=== PATIENT | male | born 1990 | race Caucasian/White ===

== ENCOUNTER 2024-09-30 10:07 | Emergency (ER) | payer OTHER, SELFPAY ==
[2024-09-30 10:08] VITALS: BP 109/78; PULSE 63; RESP 28; TEMP 35.9; O2SAT 100; BMI 22.0
--- NOTE | 2024-09-30 10:20 | ED.VIS.GI ---
HPI HPI - GI History of Present Illness Chief Complaint: Abd Pain Informant: patient Abdominal Pain/Flank Pain Onset: Today and Hours Context: Gradual Onset Timing: Continuous Quality: Aching and Cramping Location: Epigastric Current Severity: Moderate Maximum Severity: Moderate Worsened by: Nothing Relieved by: Nothing Nausea/Vomiting/Emesis GI Symptom: Positive for Nausea and Vomiting Onset: Today Severity: Mild Diarrhea/Melena/Hematochezia GI Symptom: Positive for Diarrhea; Negative for Melena or Hematochezia Onset: Today Stool Quality: Positive for Watery Severity: Mild Associated Symptoms Associated Symptoms: Negative for Dysuria, Frequency, Hematuria or Urgency Narrative Narrative: 33-year-old male dyspnea past medical or surgical history. No prior abdominal surgeries. States the last 2 weeks has had intermittent epigastric abdominal pain. He was seen in another hospital about 2 weeks ago. Had a workup at that time. Questionable gallbladder disease. He to CAT scan labs. Says that around 4 AM this morning he started having epigastric abdominal pain and cramping. Associated nausea vomiting. And watery diarrhea. Denies any hematemesis or melena. No fever. No trauma. Patient does smoke marijuana occasionally and did several days ago. Prior similar symptoms: Yes Recent Illness/Hospitalization: No PFSH PFSH Medical History no medical history no medical history Home Medications ?Medication ?Instructions ?Recorded ?Last Taken ?Type dicyclomine 10 mg capsule 20 mg (2 x 10 mg) PO BID #10 caps 09/30/24 Unknown Rx dicyclomine 20 mg tablet 20 mg PO TID #14 tabs 09/30/24 Unknown Rx ondansetron 4 mg disintegrating 4 mg PO Q6H PRN nausea and 09/30/24 Unknown Rx tablet vomiting #10 tabs Allergy/AdvReac Type Severity Reaction Status Date / Time No Known Allergies Allergy Verified 09/30/24 10:08 Family History no significant family his Surgical History no surgical history no surgical history Social History Smoking Status: Current every day smoker tobacco type: cigarettes ROS ROS ED ROS Narrative Abdominal pain. Nausea, vomiting and diarrhea. Constitutional Constitutional ED: Denies chills or fever(s) ENT ENT ED: Denies ear pain Cardiovascular Cardiovascular: Denies chest pain Respiratory/Chest Respiratory/Chest: Denies cough or dyspnea Gastrointestinal Gastrointestinal: Reports abdominal pain, diarrhea, nausea and vomiting; Denies constipation or melena Genitourinary Genitourinary ED: Denies dysuria or hematuria Musculoskeletal Musculoskeletal: Denies arthralgias or back pain Integumentary Denies abscess Neurologic Neurologic: Denies headache(s) Psychiatric Psychiatric: Denies anxiety Endocrine Endocrinology: Denies polydipsia Hematologic/Lymphatic Hematologic/Lymphatic: Denies easy bleeding Allergic/Immunologic Allergic/Immunologic ED: Denies mouth swelling, tongue swelling or urticaria EXAM Physical Exam Narrative Exam Narrative: 33-year-old male vital signs are stable afebrile. He does not look septic or toxic. He is at times screaming in pain. H EENT exam pupils round react to light. Moist mucous membranes. Neck nontender no lymphadenopathy. Lungs clear to auscultation bilaterally. Heart regular rhythm rate about 60 no murmur. Chest wall and ribs nontender. Abdomen soft nondistended normal bowel sounds without peritoneal signs. Thin muscular eyes male. Complaining primarily of epigastric pain. There is no specific Castillo sign McBurney's point tenderness. No hernia or mass. No signs of trauma or bruising. No obstruction. No inguinal lymphadenopathy. Moving all 4 extremities. Nontender no edema. Back nontender. Neurologically is awake and alert no focal motor deficits. Answering questions and following commands. When patient is distracted he does not seem to be in that much pain. Const Vital Signs: 09/30/24 10:08 09/30/24 13:12 Temperature 96.6 F L Temperature Source Temporal Pulse Rate 63 87 Respiratory Rate 28 H 16 Blood Pressure 109/78 133/84 H Blood Pressure Mean 88 100 Pulse Ox 100 97 Oxygen Delivery Method Room Air Positive well nourished and well developed; Negative for obese, cachectic, contractures or unkempt General Appearance ED: well developed and NAD; Negative for unkempt, cachectic, contractures or pallor Nutritional Appearance: Negative for cachectic or obese HEENT Reports moist mucous membranes normocephalic and atraumatic Eyes PERRL and EOMs intact bilaterally General Eye ED: Negative for pale conjunctiva or scleral icterus Neck no lymphadenopathy, supple and no JVD General: Negative for tenderness Lymph Lymphatic: Negative for other Resp normal respiratory effort and clear to auscultation bilaterally Effort and Inspection: Negative for respiratory distress Auscultation: Negative for rales, rhonchi, wheezes, diminished lung sounds or other Cardio regular rate, regular rhythm, S1 normal heart sound, S2 normal heart sound and no murmurs Rate: Negative for bradycardia or tachycardic Rhythm: Negative for abnormal rhythm GI non-distended and no masses; Negative for non-tender GI Narrative: Epigastric tender Inspection: Negative for abdominal distention Auscultation: normoactive bowel sounds Palpation: soft and tender; Negative for guarding, rigid, hepatomegaly, splenomegaly, hernia, mass, pulsatile mass or rebound tenderness present Back/Spine no CVA tenderness General Back: Negative for CVA tenderness Cervical Spine: Negative for cervical spine tenderness Thoracic Spine / Upper Back: Negative for thoracic spinal tenderness Lumbar Spine / Lower Back: Negative for lumbar spinal tenderness Extremity full ROM General Extremety ED: Negative for edema, tenderness or other findings General Extremity: Negative for edema or other findings Neuro CN's II-XII intact bilaterally and moves all extremities Sensorium / Orientation: alert, oriented to person, oriented to place and oriented to time; Negative for orientation impaired, confused, lethargic or stuporous Motor Exam: strength 5/5 throughout Psych mental status grossly normal and thought process normal Appearance: Negative for unkempt Attitude: No agitated Mood & Affect: Negative for depressed, anxious or tearful Skin no wounds General Skin Exam: Negative for jaundice or pallor Lesions: no lesions Rashes: no rashes Trauma: Negative for abrasion or other MDM MDM MDM Narrative Medical decision making narrative: 33-year-old male abdominal pain with nausea, vomiting and diarrhea. Reportedly a similar episode 2 weeks ago. This could be marijuana induced vomiting. Versus gastroenteritis versus other etiologies. Labs to be obtained. Reportedly had a recent CAT scan I will see if I will get the results from the other facility. To be treated with morphine for pain Zofran for nausea and IV fluids. CT shows no acute abnormality consistent with vomiting and diarrhea. Patient is consistently requesting additional pain meds he was given Toradol and I have ordered Bentyl. I spoke to his father at bedside explained to him that his labs are basically unremarkable other than his leukocytosis. This may all be secondary to marijuana or cannabis induced vomiting and abdominal cramping. Patient does not want to believe that is an actual possibility. His abdominal exam is benign except when he has the intermittent waves of cramping. He will be discharged home with Zofran and Bentyl. Repeat exam at 2:15 PM patient sitting upright in bed. He is smiling. He looks a lot better. Pain is resolved. He said the Toradol and the Bentyl helped him the most. He is comfortable being discharged home. This may have been a viral gastroenteritis possibly cannabis induced vomiting. He will be discharged to home with outpatient follow-up with a prescription for Zofran and Bentyl. He and his dad and family are comfortable to plan. History & Record Review Discussion w/independent historian: Patient Lab Data Attestation: I reviewed the patient's lab results. Lab results narrative: CBC shows a white count 19.3. H&H is 17 and 50. Platelets 367. Electrolytes show a gap of 11. BUN of 19 creatinine of 1. Glucose 113. Liver enzymes normal. Lipase 21. UA no infection. Ketones consistent with dehydration. No white or red cells. No nitrates. 2+ bacteria. Labs: Laboratory Results - last 24 hr 09/30/24 09/30/24 10:25 11:40 WBC 19.3 H RBC 6.00 Hgb 17.3 H Hct 50.6 MCV 84.3 MCH 28.8 MCHC 34.2 RDW Std Deviation 39.8 RDW Coeff of Bruce 12.9 Plt Count 367 MPV 9.5 Immature Gran % (Auto) 0.400 Neut % (Auto) 88.1 H Lymph % (Auto) 5.7 L [place] % (Auto) 5.2 Eos % (Auto) 0.3 Baso % (Auto) 0.3 Absolute Neuts (auto) 17.0 H Absolute Lymphs (auto) 1.09 Nucleated RBC % 0 Sodium 138 Potassium 3.7 Chloride 107 Carbon Dioxide 20.0 L Anion Gap 11 BUN 19 H Creatinine 1.04 Estim Creat Clear Calc 84.78 Est GFR (MDRD) Af Amer 107 Est GFR (MDRD) Non-Af 88 BUN/Creatinine Ratio 18.3 Glucose 113 H Calcium 9.6 Total Bilirubin 0.90 AST 26 ALT 33 Alkaline Phosphatase 62 Total Protein 8.2 Albumin 4.7 Globulin 3.5 Albumin/Globulin Ratio 1.3 Lipase 21 L Urine Color Yellow Urine Clarity Clear Urine pH 7.0 Ur Specific [place] 1.010 Urine Protein 15 H Urine Glucose (UA) Normal Urine Ketones 150 A* Urine Occult Blood Negative Urine Nitrite Negative Urine Bilirubin Negative Urine Urobilinogen Normal Ur Leukocyte Esterase 25 H Urine RBC 0 SEEN Urine WBC 0-5 SEEN Ur Squamous Epith Cells 0-5 SEEN Amorphous Sediment 1+ Urine Bacteria 2+ Urine Mucus 1+ Radiography Diagnostic Testing: Clinical Impression(s) from Imaging Studies Abdomen/Pelvis CT 09/30/24 11:31 IMPRESSION: Scattered fluid-filled loops of large bowel may reflect diarrhea. Limited evaluation of the bowel without oral contrast. Nonvisualization of the appendix. Further clinical correlation required to definitively exclude appendicitis. One or more dose reduction techniques were used (e.g., Automated exposure control, adjustment of the mA and/or kV according to patient size, use of iterative reconstruction technique). Reading Location: [facility] Discharge Plan Triage Chief Complaint: Abd Pain ED Provider: Mario Delgado Dx/Rx/DC Orders Clinical Impression: Abdominal pain, Nausea vomiting and diarrhea, Cannabis abuse Instructions: Abdominal Pain, ED Vomiting (Adult) Prescriptions: New ondansetron 4 mg tablet,disintegrating 4 mg PO Q6H PRN (Reason: nausea and vomiting) Qty: 10 0RF dicyclomine 20 mg tablet 20 mg PO TID Qty: 14 0RF dicyclomine 10 mg capsule 20 mg PO BID Qty: 10 0RF Rx Instructions: Take only as needed for abdominal cramping Primary Care Provider: Jayme Shepard Referrals: Jayme Shepard MD [Primary Care Provider] - 3-5 Days Activity Restrictions/Additional Instructions: Plenty of fluids and rest. Fluids to prevent dehydration. Tylenol and Motrin for pain. Bentyl for abdominal cramping and pain. Follow-up with your doctor if not improving or return if worse. This may be secondary to use of cannabis or marijuana. It can cause abdominal cramping and intractable vomiting and diarrhea. This could also be secondary to just a viral gastroenteritis. You need to abstain and they can take weeks to months to resolve. Zofran for nausea. Bentyl for abdominal cramping. Print Language: Romanian Disposition Disposition: Home, Self Care
[2024-09-30 10:35] LABS: Absolute Lymphocyte Count 1.09 X10^3/uL (0.83-4.51); Basophil# 0.05 X10^3/uL; Basophil% 0.3 % (0-1); Eosinophil# 0.06 X10^3/uL; Eosinophils% 0.3 % (0-5); Hematocrit 50.6 % (40-54); Hemoglobin 17.3 g/dL (13.0-16.5); Lymphocyte # 1.09 X10^3/ul (0.83-4.51); Lymphocyte % 5.7 % (19-41); Mean Corp Hgb Conc 34.2 g/dL (32-36); Mean Corpuscular Hgb 28.8 pg (27.0-32.0); Mean Corpuscular Volume 84.3 fL (80-94); Mean Platelet Vol. 9.5 fl (6.2-12.0); Monocyte# 1.01 X10^3/uL; Monocyte% 5.2 % (0-10); NRBC Flagged by Analyzer 0 % (0-5); Neutrophil # 16.98 X10^3/uL (2.7-7.7); Neutrophil % 88.1 % (47-70); Platelet Count 367 K/mm3 (150-450); RBC Distribution Width CV 12.9 % (11.6-14.6); RBC Distribution Width SD 39.8 fl (35.1-43.9); White Blood Count 19.3 K/mm3 (4.4-11.0)
[2024-09-30] MEDS: morphine 8 MG/ML Syringe IV (10:40)
[2024-09-30] MEDS: 0.9% Normal Saline (1000mL) 1,000 ML 999 ML IV (10:40)
[2024-09-30] MEDS: Ondansetron 4 MG/2 ML Vial IV (10:40)
--- NOTE | 2024-09-30 10:41 | ED.RN ---
UNABLE TO SAVE MEDICATIONS. INITIAL MEDS SCANNED AND CONFIRMED BY LIBRARY INFORMATION TECHNICIAN. UNABLE D/T IT DIFFICULTIES TO SAVE. MEDS CHARTED
[2024-09-30 11:11] LABS: ALB/GLOB Ratio 1.3 RATIO (0.9-2.4); AST(SGOT) 26 U/L (15-37); Alanine Aminotransfer ALT/SGPT 33 U/L (16-61); Albumin, Serum 4.7 g/dL (3.2-5.0); Alkaline Phosphatase 62 U/L (45-117); Anion Gap 11 (5-15); BUN 19 mg/dL (7-18); BUN/Creat Ratio 18.3 RATIO (10-20); Calcium,Total 9.6 mg/dL (8.5-10.1); Chloride 107 mmol/L (98-107); Creatinine, Serum 1.04 mg/dL (0.70-1.30); EST Glomerular Filtration Rate 88 mL/min (>60); Est Glom Filt Rate - Afr Amer 107 mL/min (>60); Estimated Creatinine Clearance 84.78 ml/min; Globulin 3.5 g/dL (2.2-4.2); Glucose 113 mg/dL (74-106); Lipase 21 U/L (73-393); Potassium 3.7 mmol/L (3.5-5.1); Protein, Total 8.2 g/dL (6.4-8.2); Sodium Level 138 mmol/L (136-145)
--- NOTE | 2024-09-30 11:31 | CT_ITS ---
PROCEDURE: Pain. TECHNIQUE: Abdomen and pelvis CT with intravenous contrast. COMPARISON: None. FINDINGS: Lung bases: Clear Liver: Unremarkable. Gallbladder: Unremarkable. Spleen: Unremarkable. Pancreas: Unremarkable. Adrenals: Unremarkable. Kidneys: Unremarkable. Bladder: Unremarkable. Reproductive Organs: Unremarkable. Bowel: Scattered fluid-filled loops of large bowel may reflect diarrhea. Limited evaluation of the bowel without oral contrast. Nonvisualization of the appendix. Further clinical correlation required to definitively exclude appendicitis.. Appendix: Normal. Lymph nodes: No suspicious lymph node enlargement. Vasculature: Major vascular structures are unremarkable. Peritoneum / Retroperitoneum: No ascites. No free air. Bones: Unremarkable. CT/Abdomen/Pelvis W IV Cont ONLY IMPRESSION: Scattered fluid-filled loops of large bowel may reflect diarrhea. Limited eval uation of the bowel without oral contrast. Nonvisualization of the appendix. Further clinical correlation required to defi nitively exclude appendicitis. One or more dose reduction techniques were used (e.g., Automated exposure contr ol, adjustment of the mA and/or kV according to patient size, use of iterative reconstruction technique). Reading Location: [facility]
[2024-09-30 11:52] LABS: Color, Urine Yellow (Yellow); Glucose, Dipstick Normal (Normal); Leukocyte Esterase-Dipstick 25 /ul (Negative); Nitrite-Dipstick Negative (Negative); Occult Blood-Urine Negative /ul (Negative); Protein-Dipstick 15 mg/dl (Negative); Urine Bilirubin Dipstick Negative (Negative); Urine Clarity Clear (Clear); Urine Urobilinogen Normal (Normal)
[2024-09-30 12:01] LABS: Ketone-Dipstick 150 mg/dl (Negative)
[2024-09-30 12:02] LABS: Amorphous Sediment 1+; Bacteria 2+ /hpf (None Seen); Mucous, Urine 1+ /hpf (<or=2+); Red Blood Cells-Urine 0 SEEN /hpf (0-5); Squamous Epithelial Cells - UA 0-5 SEEN /hpf (0-5); White Blood Cells 0-5 SEEN /hpf (0-5)
[2024-09-30] MEDS: Ketorolac 30 MG/ML Syringe IV (13:11)
[2024-09-30 13:12] VITALS: BP 133/84; PULSE 87; RESP 16; O2SAT 97
[2024-09-30] MEDS: Dicyclomine 20 MG/2 ML Vial IM (13:19)
[2024-09-30 14:30] VITALS: BP 110/62; PULSE 72; RESP 14; TEMP 36.6; O2SAT 99
== END 2024-09-30 14:36 | disposition home or self-care (01) ==
PROVIDERS: Emergency Provider Emergency Medicine; PCP Family Medicine; Visit Provider Emergency Medicine
DX: R10.9 Unspecified abdominal pain (principal); R11.2 Nausea with vomiting, unspecified; F12.10 Cannabis abuse, uncomplicated; R19.7 Diarrhea, unspecified; F17.210 Nicotine dependence, cigarettes, uncomplicated
CPT/HCPCS: 74177; 80053; 81001; 83690; 85025; 96361; 96372; 96374; 96375; 99283; Q9967; J2405